=== PATIENT | male | born 1960 | race African-American/Black ===

== ENCOUNTER 2016-09-09 05:32 | Emergency (ER) | payer MEDICAID ==
[~2016-09-09] VITALS: Ht 182.9 cm; Wt 88.0 kg
[2016-09-09] MEDS ORDERED: TRAMADOL 50MG TABLET PO ONE (07:00)
[2016-09-09] MEDS ORDERED: OLANZAPINE 10 MG/VIAL IM ONE (08:45)
[2016-09-09] MEDS ORDERED: LORAZEPAM 2MG/ML CPJ IM PRN (08:45)
[2016-09-09 08:56] LABS: EOSINOPHILS % 4.2 % (0.0-5.0); HEMATOCRIT. 41.2 % (42.0-52.0); HEMOGLOBIN. 13.9 g/dL (14.0-18.0); LYMPHOCYTES % 43.2 % (20.0-50.0); MEAN CORPUSCULAR HGB CONC 33.8 g/dL (31.0-37.0); MEAN CORPUSCULAR VOLUME 97.5 fL (80.0-94.0); MEAN PLATELET VOLUME 6.9 fl (7.4-10.4); MONOCYTES % 7.5 % (2.0-8.0); NEUTROPHILS % 44.1 % (40.0-76.0); PLATELET 216 x1000/uL (130-400); RED BLOOD CELL COUNT 4.22 mill/uL (4.7-6.1); RED CELL DISTRIBUTION WIDTH 13.7 % (11.6-14.6); WHITE BLOOD COUNT 3.8 x1000/uL (4.5-11.0)
[2016-09-09 09:09] LABS: ACETAMINOPHEN < 2 ug/mL (10-30); ALANINE AMINOTRANSFERASE 43 IU/L (13-61); ALBUMIN 4.6 g/dL (3.4-5.0); ANION GAP 14; CALCIUM 9.4 mg/dL (8.5-10.1); CARBON DIOXIDE 26 mEq/L (21-32); CHLORIDE 106 mEq/L (98-107); ETHANOL BLOOD 182 mg/dL; INDEX HEMOLYSI 1 (1-3); INDEX ICTERIC 1 (1-4); INDEX LIPEMIC 1 (1-3); UREA NITROGEN BLOOD 12 mg/dL (7-21); eGFR > 60 mL/min (>60)
[2016-09-09 10:55] LABS: CLARITY URINE CLEAR (CLEAR); COLOR URINE YELLOW (YELLOW); GLUCOSE URINE NEGATIVE (NEGATIVE); KETONES URINE NEGATIVE (NEGATIVE); LEUKOCYTE ESTERASE URINE NEGATIVE (NEGATIVE); NITRITE URINE NEGATIVE (NEGATIVE); OCCULT BLOOD URINE NEGATIVE (NEGATIVE); PROTEIN URINE NEGATIVE (NEGATIVE); SPECIFIC GRAVITY URINE 1.014 (1.005-1.030); UROBILINOGEN URINE 0.2 E.U./dL (0.2-1.0)
[2016-09-09 11:08] LABS: *AMPHETAMINES SCREEN URINE NEGATIVE (NEGATIVE); *BARBITURATES SCREEN URINE NEGATIVE (NEGATIVE); *BENZODIAZEPINES SCREEN URINE NEGATIVE (NEGATIVE); *COCAINE SCREEN URINE PRESUMTIVE POSITIVE (NEGATIVE); CANNABINOID URINE SCREEN PRESUMTIVE POSITIVE (NEGATIVE); ECSTASY MDMA SCREEN URINE NEGATIVE (NEGATIVE); METHADONE URINE SCREEN NEGATIVE (NEGATIVE); OPIATES URINE SCREEN NEGATIVE (NEGATIVE); PHENCYCLIDINE URINE SCREEN NEGATIVE (NEGATIVE)
[2016-09-09 19:38] VITALS: BP 142/74
== END 2016-09-09 22:06 | disposition home or self-care (01) ==
LOC: ER 05:32
DX: R51 Headache (principal); M25.551 Pain in right hip; R11.2 Nausea with vomiting, unspecified; I10 Essential (primary) hypertension; Z88.0 Allergy status to penicillin; Z88.6 Allergy status to analgesic agent
CPT/HCPCS: 36415; 70450; 72125; 73502; 80053; 80305; 80307; 80329; 81003; 85025; 96372; 99285; G0482; J2060; J3490; Z7610

== ENCOUNTER 2016-09-27 06:09 | Emergency (ER) | payer MEDICAID ==
[~2016-09-27] VITALS: Ht 175.3 cm; Wt 77.0 kg
[2016-09-27 06:57] LABS: BASOPHILS % 0.9 % (0.0-2.0); EOSINOPHILS % 1.2 % (0.0-5.0); HEMATOCRIT. 42.6 % (42.0-52.0); HEMOGLOBIN. 14.6 g/dL (14.0-18.0); LYMPHOCYTES % 37.4 % (20.0-50.0); MEAN CORPUSCULAR HEMOGLOBIN 33.1 pg (28.0-32.0); MEAN CORPUSCULAR HGB CONC 34.2 g/dL (31.0-37.0); MEAN CORPUSCULAR VOLUME 96.8 fL (80.0-94.0); MEAN PLATELET VOLUME 7.2 fl (7.4-10.4); MONOCYTES % 8.7 % (2.0-8.0); NEUTROPHILS % 51.8 % (40.0-76.0); PLATELET 268 x1000/uL (130-400); RED CELL DISTRIBUTION WIDTH 13.6 % (11.6-14.6); WHITE BLOOD COUNT 3.8 x1000/uL (4.5-11.0)
[2016-09-27 07:01] LABS: ACETAMINOPHEN < 2 ug/mL (10-30); ALANINE AMINOTRANSFERASE 35 IU/L (13-61); ALBUMIN 4.2 g/dL (3.4-5.0); ANION GAP 15; CALCIUM 8.2 mg/dL (8.5-10.1); CARBON DIOXIDE 23 mEq/L (21-32); CHLORIDE 108 mEq/L (98-107); ETHANOL BLOOD 202 mg/dL; INDEX HEMOLYSI 1 (1-3); INDEX ICTERIC 1 (1-4); INDEX LIPEMIC 1 (1-3); UREA NITROGEN BLOOD 7 mg/dL (7-21); eGFR > 60 mL/min (>60)
[2016-09-27 07:26] LABS: CLARITY URINE TURBID (CLEAR); COLOR URINE YELLOW (YELLOW); GLUCOSE URINE 2+ (NEGATIVE); KETONES URINE TRACE (NEGATIVE); LEUKOCYTE ESTERASE URINE NEGATIVE (NEGATIVE); NITRITE URINE NEGATIVE (NEGATIVE); OCCULT BLOOD URINE 1+ (NEGATIVE); PROTEIN URINE TRACE (NEGATIVE); SPECIFIC GRAVITY URINE 1.019 (1.005-1.030)
[2016-09-27 07:43] LABS: *AMPHETAMINES SCREEN URINE NEGATIVE (NEGATIVE); *BARBITURATES SCREEN URINE NEGATIVE (NEGATIVE); *BENZODIAZEPINES SCREEN URINE NEGATIVE (NEGATIVE); *COCAINE SCREEN URINE PRESUMTIVE POSITIVE (NEGATIVE); CANNABINOID URINE SCREEN PRESUMTIVE POSITIVE (NEGATIVE); ECSTASY MDMA SCREEN URINE NEGATIVE (NEGATIVE); METHADONE URINE SCREEN NEGATIVE (NEGATIVE); OPIATES URINE SCREEN NEGATIVE (NEGATIVE); PHENCYCLIDINE URINE SCREEN NEGATIVE (NEGATIVE)
[2016-09-27 07:51] LABS: AMORPHOUS SEDIMENT URINE 3+ /lpf; BACTERIA URINE TRACE; SQUAMOUS EPITHELIAL CELL URINE 1+ /lpf (RARE/1+)
[2016-09-27 07:52] LABS: COARSE GRANULAR CASTS URINE 0-5 /lpf; MUCUS URINE 2+ /lpf (NONE/TRACE)
[2016-09-27 16:56] VITALS: BP 149/89
== END 2016-09-27 17:03 ==
LOC: ER 06:22
DX: F20.9 Schizophrenia, unspecified (principal); Z88.0 Allergy status to penicillin; Z88.6 Allergy status to analgesic agent
CPT/HCPCS: 36415; 80053; 80305; 80307; 80329; 81001; 82962; 85025; 99285; G0482

== ENCOUNTER 2016-11-17 13:35 | Emergency (ER) | payer MEDICAID ==
[~2016-11-17] VITALS: Ht 182.9 cm; Wt 91.0 kg
[2016-11-17] MEDS ORDERED: SODIUM CHLORIDE 0.9% 1,000 ML IV ONE (14:21)
[2016-11-17 14:49] LABS: CLARITY URINE CLEAR (CLEAR); COLOR URINE YELLOW (YELLOW); GLUCOSE URINE NEGATIVE (NEGATIVE); KETONES URINE TRACE (NEGATIVE); LEUKOCYTE ESTERASE URINE NEGATIVE (NEGATIVE); NITRITE URINE NEGATIVE (NEGATIVE); OCCULT BLOOD URINE NEGATIVE (NEGATIVE); PROTEIN URINE NEGATIVE (NEGATIVE); SPECIFIC GRAVITY URINE 1.025 (1.005-1.030); UROBILINOGEN URINE 0.2 E.U./dL (0.2-1.0)
[2016-11-17 15:16] LABS: CHLORIDE 104 mEq/L (98-107)
[2016-11-17 15:17] LABS: *AMPHETAMINES SCREEN URINE NEGATIVE (NEGATIVE); *BARBITURATES SCREEN URINE NEGATIVE (NEGATIVE); *BENZODIAZEPINES SCREEN URINE PRESUMTIVE POSITIVE (NEGATIVE); *COCAINE SCREEN URINE PRESUMTIVE POSITIVE (NEGATIVE); CANNABINOID URINE SCREEN PRESUMTIVE POSITIVE (NEGATIVE); METHADONE URINE SCREEN NEGATIVE (NEGATIVE); OPIATES URINE SCREEN NEGATIVE (NEGATIVE); PHENCYCLIDINE URINE SCREEN NEGATIVE (NEGATIVE)
[2016-11-17 15:17] LABS: PROTHROMBIN TIME 10.6 sec
[2016-11-17 15:21] LABS: CARBON DIOXIDE 28 mEq/L (21-32); ETHANOL BLOOD < 10 mg/dL
[2016-11-17 15:22] LABS: BASOPHILS % 1.2 % (0.0-2.0); EOSINOPHILS % 3.8 % (0.0-5.0); HEMATOCRIT. 38.6 % (42.0-52.0); HEMOGLOBIN. 13.2 g/dL (14.0-18.0); LYMPHOCYTES % 41.9 % (20.0-50.0); MEAN CORPUSCULAR HEMOGLOBIN 32.6 pg (28.0-32.0); MEAN CORPUSCULAR VOLUME 95.5 fL (80.0-94.0); MEAN PLATELET VOLUME 7.1 fl (7.4-10.4); NEUTROPHILS % 43.1 % (40.0-76.0); PLATELET 211 x1000/uL (130-400); RED BLOOD CELL COUNT 4.04 mill/uL (4.7-6.1); RED CELL DISTRIBUTION WIDTH 12.6 % (11.6-14.6)
[2016-11-17 15:40] VITALS: BP 121/78
== END 2016-11-17 15:58 | disposition home or self-care (01) ==
LOC: ER 13:38
DX: T50.901A Poisoning by unspecified drugs, medicaments and biological substances, accidental (unintentional), initial encounter (principal); F17.200 Nicotine dependence, unspecified, uncomplicated; F20.9 Schizophrenia, unspecified; Z88.0 Allergy status to penicillin; Z88.6 Allergy status to analgesic agent; Y92.89 Other specified places as the place of occurrence of the external cause
CPT/HCPCS: 36415; 51702; 80053; 80305; 80307; 80329; 81003; 85025; 85610; 93005; 96360; 99285; G0482; J7030; Z7610; A4315

== ENCOUNTER 2017-09-12 05:03 | Emergency (ER) | payer MEDICAID ==
[~2017-09-12] VITALS: Ht 180.3 cm; Wt 88.0 kg
[2017-09-12] MEDS ORDERED: ACETAMINOPHEN 325MG TABLET PO ONE (07:00)
[2017-09-12 07:36] LABS: CHLORIDE 106 mEq/L (98-107)
[2017-09-12 07:50] LABS: BASOPHILS % 0.7 % (0.0-2.0); EOSINOPHILS % 1.5 % (0.0-5.0); HEMATOCRIT. 37.3 % (42.0-52.0); HEMOGLOBIN. 12.8 g/dL (14.0-18.0); LYMPHOCYTES % 29.7 % (20.0-50.0); MEAN CORPUSCULAR HEMOGLOBIN 33.3 pg (28.0-32.0); MEAN CORPUSCULAR VOLUME 97.2 fL (80.0-94.0); MEAN PLATELET VOLUME 7.1 fl (7.4-10.4); MONOCYTES % 7.4 % (2.0-8.0); NEUTROPHILS % 60.7 % (40.0-76.0); PLATELET 338 x1000/uL (130-400); RED BLOOD CELL COUNT 3.84 mill/uL (4.7-6.1); RED CELL DISTRIBUTION WIDTH 13.5 % (11.6-14.6)
[2017-09-12 08:47] LABS: CLARITY URINE CLEAR (CLEAR); COLOR URINE YELLOW (YELLOW); KETONES URINE NEGATIVE (NEGATIVE); LEUKOCYTE ESTERASE URINE NEGATIVE (NEGATIVE); NITRITE URINE NEGATIVE (NEGATIVE); OCCULT BLOOD URINE NEGATIVE (NEGATIVE); PH URINE 5.5 (4.5-8.0); PROTEIN URINE NEGATIVE (NEGATIVE); SPECIFIC GRAVITY URINE 1.009 (1.005-1.030)
[2017-09-12 08:51] LABS: *AMPHETAMINES SCREEN URINE NEGATIVE (NEGATIVE); *BARBITURATES SCREEN URINE NEGATIVE (NEGATIVE)
[2017-09-12 08:52] LABS: *BENZODIAZEPINES SCREEN URINE PRESUMTIVE POSITIVE (NEGATIVE); *COCAINE SCREEN URINE PRESUMTIVE POSITIVE (NEGATIVE); CANNABINOID URINE SCREEN PRESUMTIVE POSITIVE (NEGATIVE); METHADONE URINE SCREEN NEGATIVE (NEGATIVE); OPIATES URINE SCREEN NEGATIVE (NEGATIVE); PHENCYCLIDINE URINE SCREEN NEGATIVE (NEGATIVE)
[2017-09-12] MEDS ORDERED: [UNRECOGNIZED DRUG - REMARK] IV ONE ×4 (09:15)
[2017-09-12] MEDS ORDERED: HYDROCODONE/ACETAMINOPHEN 5/325MG TABLET PO ONE (09:15)
[2017-09-12] MEDS ORDERED: [UNRECOGNIZED DRUG - REMARK] IV ONE ×4 (10:00)
[2017-09-13 11:49] VITALS: BP 150/109
== END 2017-09-13 14:11 | disposition home or self-care (01) ==
LOC: ER 05:03
DX: F14.10 Cocaine abuse, uncomplicated (principal); R45.851 Suicidal ideations; G89.29 Other chronic pain; M54.5 Low back pain; I10 Essential (primary) hypertension; D64.9 Anemia, unspecified; F13.10 Sedative, hypnotic or anxiolytic abuse, uncomplicated; F12.10 Cannabis abuse, uncomplicated; F10.10 Alcohol abuse, uncomplicated; F17.200 Nicotine dependence, unspecified, uncomplicated; Z88.6 Allergy status to analgesic agent; Z88.0 Allergy status to penicillin
CPT/HCPCS: 36415; 80053; 80305; 81003; 85025; 96365; 99284; G0482; J3411; J3490; Z7610; J7060; J7070

== ENCOUNTER 2023-09-12 16:01 | Emergency (ER) | payer MEDICAID ==
[~2023-09-12] VITALS: Ht 185.4 cm; Wt 86.0 kg
[2023-09-12] MEDS: OLANZAPINE 10 MG/VIAL IM ONE (16:51)
[2023-09-12] MEDS: MIDAZOLAM HCL 2 MG/2 ML VIAL IV ONE (16:51)
[2023-09-12 17:59] LABS: BASOPHILS % 0.5 % (0.0-2.0); EOSINOPHILS % 0.3 % (0.0-5.0); HEMATOCRIT. 39.8 % (42.0-52.0); HEMOGLOBIN. 13.5 g/dL (14.0-18.0); LYMPHOCYTES % 20.8 % (20.0-50.0); MEAN CORPUSCULAR HEMOGLOBIN 33.1 pg (28.0-32.0); MEAN CORPUSCULAR HGB CONC 33.9 g/dL (31.0-37.0); MEAN CORPUSCULAR VOLUME 97.6 fL (80.0-94.0); MONOCYTES % 9.9 % (2.0-8.0); NEUTROPHILS % 68.5 % (40.0-76.0); PLATELET 218 x1000/uL (130-400); RED BLOOD CELL COUNT 4.07 mill/uL (4.7-6.1); RED CELL DISTRIBUTION WIDTH 15.1 % (11.6-14.6); WHITE BLOOD COUNT 5.7 x1000/uL (4.5-11.0)
[2023-09-12 18:04] LABS: CHLORIDE 103 mEq/L (98-107); POTASSIUM 3.9 mEq/L (3.5-5.1); SODIUM 138 mEq/L (136-145)
[2023-09-12 18:05] LABS: CALCIUM 8.4 mg/dL (8.7-10.4); CARBON DIOXIDE 21 mEq/L (21-32)
[2023-09-12 18:10] LABS: CREATININE 0.9 mg/dL (0.6-1.3); ETHANOL BLOOD 300 mg/dL (<10); GLUCOSE 85 mg/dL (70-105); UREA NITROGEN BLOOD 8 mg/dL (9-23)
[2023-09-12 18:12] LABS: ACETAMINOPHEN < 2 ug/mL (10-30); ALANINE AMINOTRANSFERASE 13 IU/L (10-49); ALBUMIN 4.4 g/dL (3.2-4.8); ASPARTATE AMINOTRANSFERASE 41 IU/L (<34); BILIRUBIN TOTAL 0.7 mg/dL (0.1-1.0); PROTEIN TOTAL 6.8 g/dL (6.0-8.3)
[2023-09-12 19:06] LABS: *AMPHETAMINES SCREEN URINE PRESUMPTIVE POSITIVE (NEGATIVE); *BARBITURATES SCREEN URINE NEGATIVE (NEGATIVE); *BENZODIAZEPINES SCREEN URINE PRESUMPTIVE POSITIVE (NEGATIVE); *COCAINE SCREEN URINE PRESUMPTIVE POSITIVE (NEGATIVE); CANNABINOID URINE SCREEN NEGATIVE (NEGATIVE); ECSTASY MDMA SCREEN URINE NEGATIVE (NEGATIVE); METHADONE URINE SCREEN Neg (NEGATIVE); OPIATES URINE SCREEN NEGATIVE (NEGATIVE); PHENCYCLIDINE URINE SCREEN NEGATIVE (NEGATIVE)
[2023-09-12 22:50] VITALS: O2SAT 100
[2023-09-12] MEDS: MIDAZOLAM HCL 2 MG/2 ML VIAL IM ONE (22:50)
[2023-09-13] MEDS: HALOPERIDOL LACTATE 5MG/ML VIAL IM ONE (00:34)
[2023-09-13] MEDS: LORAZEPAM 2MG/ML INJ IM ONE (00:35)
[2023-09-13] MEDS: DIPHENHYDRAMINE 50MG/ML VIAL IM PRN (00:35)
[2023-09-13 11:22] VITALS: BP 128/79; PULSE 85; RESP 16; TEMP 98
== END 2023-09-13 11:22 | disposition home or self-care (01) ==
LOC: ER 16:01
DX: R45.851 Suicidal ideations (principal); R45.1 Restlessness and agitation; F19.10 Other psychoactive substance abuse, uncomplicated; F10.129 Alcohol abuse with intoxication, unspecified; F12.10 Cannabis abuse, uncomplicated; Z86.73 Personal history of transient ischemic attack (TIA), and cerebral infarction without residual deficits; Z20.822 Contact with and (suspected) exposure to COVID-19; Y90.8 Blood alcohol level of 240 mg/100 ml or more
CPT/HCPCS: 80053; 80305; 80307; 80329; 80320; 85025; 36415; 96372 ×2; 96374; 99285; 87426; J3490; J2250; J1200; J1630; J2060; G0480

== ENCOUNTER 2024-08-14 17:49 | Emergency (ER) | payer MEDICAID ==
[~2024-08-14] VITALS: Ht 177.8 cm; Wt 90.0 kg
[2024-08-14 18:31] VITALS: O2SAT 100
[2024-08-14] MEDS: OLANZAPINE 10 MG/VIAL IM ONE (18:31)
[2024-08-14] MEDS: MIDAZOLAM HCL 2 MG/2 ML VIAL IV ONE (18:31)
[2024-08-14 18:54] LABS: BASOPHILS % 0.7 % (0.0-2.0); EOSINOPHILS % 0.1 % (0.0-5.0); HEMATOCRIT. 38.9 % (42.0-52.0); LYMPHOCYTES % 15.5 % (20.0-50.0); MEAN CORPUSCULAR HEMOGLOBIN 32.9 pg (28.0-32.0); MEAN CORPUSCULAR HGB CONC 33.4 g/dL (31.0-37.0); MEAN CORPUSCULAR VOLUME 98.6 fL (80.0-94.0); MONOCYTES % 7.2 % (2.0-8.0); NEUTROPHILS % 76.5 % (40.0-76.0); PLATELET 346 x1000/uL (130-400); RED BLOOD CELL COUNT 3.95 mill/uL (4.7-6.1); RED CELL DISTRIBUTION WIDTH 13.4 % (11.6-14.6); WHITE BLOOD COUNT 8.1 x1000/uL (4.5-11.0)
[2024-08-14] MEDS: CHLORHEXIDINE GLUCONATE 0.12% MOUTHWASH UDC SSP SCH (19:00)
[2024-08-14 19:03] LABS: CHLORIDE 98 mEq/L (98-107); POTASSIUM 3.7 mEq/L (3.5-5.1); SODIUM 136 mEq/L (136-145)
[2024-08-14 19:04] LABS: CALCIUM 9.4 mg/dL (8.7-10.4); CARBON DIOXIDE 24 mEq/L (21-32)
[2024-08-14 19:09] LABS: CREATININE 0.8 mg/dL (0.6-1.3); ETHANOL BLOOD 232 mg/dL (<10); GLUCOSE 108 mg/dL (70-105); UREA NITROGEN BLOOD 12 mg/dL (9-23)
[2024-08-15] MEDS: MIDAZOLAM HCL 2 MG/2 ML VIAL IM ONE (07:36)
[2024-08-15 08:47] LABS: CLARITY URINE CLEAR (CLEAR); COLOR URINE DARK YELLOW (YELLOW); GLUCOSE URINE NEGATIVE (NEGATIVE); KETONES URINE TRACE (NEGATIVE); LEUKOCYTE ESTERASE URINE 1+ (NEGATIVE); NITRITE URINE NEGATIVE (NEGATIVE); OCCULT BLOOD URINE NEGATIVE (NEGATIVE); PH URINE 6.5 (4.5-8.0); PROTEIN URINE 1+ (NEGATIVE); SPECIFIC GRAVITY URINE 1.018 (1.005-1.030)
[2024-08-15 09:00] LABS: SQUAMOUS EPITHELIAL CELL URINE 1+ /lpf (RARE/1+)
[2024-08-15 09:01] LABS: WBC URINE 15-25 /hpf (0-2)
[2024-08-15 09:02] LABS: BACTERIA URINE 2+; RBC URINE NONE SEEN /hpf (0-2)
[2024-08-15 09:18] LABS: *AMPHETAMINES SCREEN URINE NEGATIVE (NEGATIVE); *BARBITURATES SCREEN URINE NEGATIVE (NEGATIVE); *BENZODIAZEPINES SCREEN URINE NEGATIVE (NEGATIVE); *COCAINE SCREEN URINE PRESUMPTIVE POSITIVE (NEGATIVE); CANNABINOID URINE SCREEN PRESUMPTIVE POSITIVE (NEGATIVE); ECSTASY MDMA SCREEN URINE NEGATIVE (NEGATIVE); METHADONE URINE SCREEN NEGATIVE (NEGATIVE); OPIATES URINE SCREEN NEGATIVE (NEGATIVE); PHENCYCLIDINE URINE SCREEN NEGATIVE (NEGATIVE)
[2024-08-15] MEDS: ALPRAZOLAM 0.5 MG TABLET PO ONE (17:58)
[2024-08-15] MEDS: RISPERIDONE 0.5MG TABLET PO SCH (21:01)
[2024-08-15] MEDS: HYDROCODONE/ACETAMINOPHEN 5/325MG TABLET PO NR (23:30)
[2024-08-16] MEDS: OLANZAPINE 10 MG/VIAL IM NR (02:27)
[2024-08-16 16:39] VITALS: BP 127/81; PULSE 85; RESP 16; TEMP 36.6; O2SAT 99
== END 2024-08-16 16:40 ==
LOC: ER 17:49
DX: R45.851 Suicidal ideations (principal); I10 Essential (primary) hypertension; F12.90 Cannabis use, unspecified, uncomplicated; F20.9 Schizophrenia, unspecified; F14.90 Cocaine use, unspecified, uncomplicated; F15.90 Other stimulant use, unspecified, uncomplicated; Z88.6 Allergy status to analgesic agent; Z88.0 Allergy status to penicillin; Z86.73 Personal history of transient ischemic attack (TIA), and cerebral infarction without residual deficits; Z20.822 Contact with and (suspected) exposure to COVID-19
CPT/HCPCS: 80305; 80048; 81003; 80320; 85025; 87086; 36415; 96372; 99285; 87426; J3490 ×2; J2250; G0480